=== PATIENT | male | born 1940 | race Caucasian/White ===

== ENCOUNTER 2023-06-04 19:51 | Emergency (ER) | payer MEDICARE, SELFPAY ==
[2023-06-04 20:03] VITALS: BP 161/91; PULSE 96; RESP 20; TEMP 37.2; O2SAT 94; BMI 30.1
--- NOTE | 2023-06-04 20:19 | US_ITS ---
Patient: LORI GRUBBS Facility:?[facility] Patient ID:?[id number] Site Patient ID:?[id number] Site :?[id number] Study:?US-Extremity Right LEV-06/04/2023 9:36:16 PM Ordering Physician:?Anitha Cohen MD Final Report: INDICATION: Leg pain and swelling. TECHNIQUE: Ultrasound venous duplex lower right extremity. Compression venous exam was performed using geiger-scale, color Doppler, and spectral Doppler analysis. COMPARISON: None. FINDINGS: Deep veins: Sonographic imaging demonstrates the right common femoral, deep femoral, superficial femoral, popliteal, posterior tibial and the contralateral right common femoral veins to be fully compressible with normal color Doppler blood flow. Superficial veins: Greater saphenous vein is fully compressible. No popliteal cyst. IMPRESSION: Normal right lower extremity venous ultrasound, no sign of deep venous thrombosis. Dictated by Angel Arroyo MD @ 06/04/2023 9:51:32 PM Signed by:?Angel Arroyo MD @06/04/2023 9:51:32 PM (Electronic Signature)
--- NOTE | 2023-06-04 21:15 | ED_ITS ---
HPI - General Adult General Chief complaint: Lower Extremity Swelling Stated complaint: L ankle and lower leg painful and swollen Time Seen by Provider: 06/04/23 20:05 Source: patient Mode of arrival: ambulatory Limitations: no limitations History of Present Illness HPI narrative: 82-year-old male coming in today complaining of right lower extremity swelling and discomfort. Patient states that his knees are bothering him for about 2 weeks and in the last couple days it has started to feel better. He denies any fevers or chills, no nausea or vomiting. He denies any cough or shortness of breath. He denies any chest pain. He states that in the last 24 hours he has noticed that the right lower extremity has gotten more swollen and he complains of tenderness at the calf and also at the ankle. Again no systemic symptoms. He denies any recent trauma to the extremity. Related Data Home Medications Medication Instructions Recorded Confirmed ibuprofen 200 mg tablet 200 mg PO Q4H PRN 08/06/22 08/06/22 Previous Rx's Medication Instructions Recorded albuterol sulfate 90 mcg/actuation 2 puff inhalation Q4-6H PRN 08/06/22 aerosol inhaler shortness of breath or wheezing #8.5 grams Allergies Allergy/AdvReac Type Severity Reaction Status Date / Time No Known Drug Allergies Allergy Verified 08/06/22 10:13 Review of Systems Status of ROS: Reports: 10 or more systems reviewed and unremarkable except as noted in History and below [facility] Medical History Bronchitis ?J40 - Bronchitis, not specified as acute or chronic (ICD-10) Sinusitis ?J32.9 - Chronic sinusitis, unspecified (ICD-10) Wheezing ?R06.2 - Wheezing (ICD-10) Cough ?R05.9 - Cough, unspecified (ICD-10) Social History Smoking Status: Former smoker Exam Narrative: Exam Narrative: Well-nourished well-developed patient in no acute distress. Alert and oriented. Answers questions appropriately. Mood and affect are appropriate. Thoughts are goal oriented and rational. No tangential or magical thinking noted. Patient speaks in full sentences without needing to catch his breath. HEENT: Normocephalic atraumatic. Pupils are equally round reactive to light. Extraocular muscles are intact. Conjunctivae are moist without any icterus noted. Moist mucous membranes. Cardiovascular: Heart is regular rate and rhythm S1 and S2 are present without any murmurs. Lungs: Clear to auscultation bilaterally no wheezes rhonchi or rales are apprec iated. Patient takes deep breaths without any discomfort. Abdomen: Protuberant and soft. Extremities: Bilateral lower extremities are without pitting edema. Normal DP and PT pulses. He does have some swelling of the right ankle. The medial right distal ankle and foot is erythematous, warm to touch with some skin induration consistent with cellulitis. He has mild nonspecific tenderness over the entire calf and ankle area. There is no redness, no pitting edema of the calf. He has good range of motion at the knee, there does appear to be a joint effusion. However, there is no erythema or warmth noted. Skin: Well perfused. Const: Vital Signs, click to edit/add: Vital Signs - 24 hr 06/04/23 20:03 Temperature 98.9 F Pulse Rate [Pulse Oximeter] 96 Respiratory Rate 20 Blood Pressure [Le ft Upper Arm] 161/91 H Pulse Oximetry 94 Oxygen Delivery Me thod Room Air Course Course ED Course: Lower extremity ultrasound was ordered: This did not show any evidence of DVT. Vital Signs Vital signs: Initial Vital Signs Temperature 98.9 F 06/04/23 20:03 Temperature Source Temporal Artery Scan 06/04/23 20:03 Pulse Rate 96 06/04/23 20:03 Respiratory Rate 20 06/04/23 20:03 Blood Pressure 161/91 H 06/04/23 20:03 Blood Pressure Mean 114 H 06/04/23 20:03 Blood Pressure Position Sitting 06/04/23 20:03 Pulse Oximetry 94 06/04/23 20:03 Oxygen Delivery Method Room Air 06/04/23 20:03 Vital Signs Temperature 98.9 F 06/04/23 20:03 Pulse Rate 96 06/04/23 20:03 Respiratory Rate 20 06/04/23 20:03 Blood Pressure 161/91 H 06/04/23 20:03 Pulse Oximetry 94 06/04/23 20:03 Oxygen Delivery Method Room Air 06/04/23 20:03 Temperature 98.9 F 06/04/23 20:03 Pulse Rate 96 06/04/23 20:03 Respiratory Rate 20 06/04/23 20:03 Blood Pressure 161/91 H 06/04/23 20:03 Pulse Oximetry 94 06/04/23 20:03 Oxygen Delivery Method Room Air 06/04/23 20:03 Medical Decision Making MDM Narrative Medical decision making narrative: 82-year-old male with lower extremity swelling, evidence of cellulitis present. Will treat the patient with Keflex p.o. t.i.d.. I do want him to follow up in the clinic 1st thing Wednesday. Return to the ED for any systemic symptoms. Imaging Data Venous US: Attestation: I have reviewed the pertinent imaging results. Radiologist's impression: INDICATION: Leg pain and swelling. TECHNIQUE: Ultrasound venous duplex lower right extremity. Compression venous exam was performed using geiger-scale, color Doppler, and spectral Doppler analysis. COMPARISON: None. FINDINGS: Deep veins: Sonographic imaging demonstrates the right common femoral, deep femoral, superficial femoral, popliteal, posterior tibial and the contralateral right common femoral veins to be fully compressible with normal color Doppler blood flow. Superficial veins: Greater saphenous vein is fully compressible. No popliteal cyst. IMPRESSION: Normal right lower extremity venous ultrasound, no sign of deep venous thrombosis. Discharge Plan Discharge Clinical Impression: Cellulitis Patient Disposition: Home, Self-Care Condition: Stable Additional Instructions: You appear to have an infection of your ankle/foot area. I do want you to take all the antibiotics as prescribed, take your 1st dose tonight. I also recommend that you follow-up with a primary care provider on Wednesday. When you call to make the appointment, state that you need an ER follow-up visit for cellulitis. I want you to return to the emergency room if you develop fatigue, weakness, fevers, vomiting or loss of appetite. Antibiotics sent to [facility]. Prescriptions: No Action ibuprofen 200 mg tablet 200 mg PO Q4H PRN albuterol sulfate 90 mcg/actuation HFA aerosol inhaler 2 puff inhalation Q4-6H PRN (Reason: shortness of breath or wheezing) Qty: 8.5 1RF Follow Up/Referrals: Provider,Not a Local [Primary Care Provider] - [facility]
--- OUTSIDE RECORDS SUMMARY | 2023-06-04 21:50 | XMS_ITS | Clinical Summary ---
Author Name Unknown Organization [facility] Address [place], [place] [address] Care Team Providers Care Visual Merchandising Specialist Name Role Phone JillYamile majano MD Unavailable [phone] Mauricio Smith MD Unavailable [phone] Melvin Hurt MD Primary Care Provider Allergies Active Allergy Reactions Criticality Noted Date Comments Flavoring Agent Other - Describe In Comment Field 07/19/2009 Chocolate - causes sneezing Unlisted Allergen (Include Detail In Comments) Other - Describe In Comment Field 02/16/2017 Road salt dust - causes watery eyes, congestion, and sneezing Pollen Extracts Other - Describe In Comment Field 07/19/2009 Ragweed also. Patient states the reaction felt like a head cold Soybean Other - Describe In Comment Field 07/08/2010 Pneumonia from soybean dust in 1984. Only allergy is soy florentino dust, able to take soy products if not josé antonio. Medications Medication Sig Dispensed Refills Start Date End Date Status multivitamin (MVI) tablet Take 1 tablet by mouth once daily. 0 11/28/2009 Active calcium carbonate-vitamin D3, 600 mg-400 unit, (CALCIUM 600 + D) tablet Take 1 tablet by mouth once daily. 0 04/30/2011 Active Cholecalciferol, Vitamin D3, (VITAMIN D-3) 5,000 unit TabIndications:Lily min D deficiency Take 1 tablet by mouth once daily. 90 tablet 1 09/15/2012 Active medication order composerIndications :Obstructive sleep apnea 09/07/2012 AHI-15, Diagnosis- obstructive sleep apnea; MRD #1-- Needs time chip for DOT compliance 1 unit. 10/14/2020 Active Active Problems Problem Noted Date Diagnosed Date Cortical senile cataract, bilateral 02/14/2020 Nuclear sclerotic cataract, bilateral 02/14/2020 Presbyopia 02/14/2020 Anisometropia 02/14/2020 Fracture of greater trochanter 03/02/2013 Overview: Avulsion fx, L AMINA 09/07/2012 AHI-15 09/15/2012 ACP (advance care planning) 04/06/2011 Overview: Document on File 04/06/2011 Dermatochalasis 06/10/2010 Biceps tendon rupture 09/30/2009 Spinal stenosis, lumbar ryland on, without neurogenic claudication 06/26/2009 Onychomycosis 12/11/2008 Overview: right great toe - treated by Dr Pruitt Resolved Problems Problem Noted Date Diagnosed Date Resolved Date Vitamin D deficiency 09/15/2012 021 Personal history of colonic polyps 02/04/2011 03/25/2020 Overview: Colonoscopy 01/2011 normal repeat in 5 years Colonoscopy 07/2016 polyp repeat in 5 years Gallstone pancreatitis 07/09/201004/08 Abdominal pain, generalized 07/05/2010 04/08/2011 Hyperbilirubinemia 07/05/2010 2 Biliary obstruction 07/05/2010 04/08/19 12 Fever 07/05/2010 04/08/2011 Hypokalemia 07/05/2010 04/08/2011 Jaundice, unspecified, not of 07/05/2010 04/08/2011 Elevated LFT's 07/05/2010 04/08/2011 Osteoarthritis of hip 09/11/20092009 Lt knee pain 07/24/2009 01/09/2010 Hip pain 12/11/2008 11/28/2009 Overview: Right - thought due to Osteoarthritis Immunizations Name Administration Dates Next Due Influenza, IIV3 (Age >=3 years) 11/28/2009 Pneumococcal Poly,23-Valent (Pneumovax) 07/17/19 10 Pneumococcal conj 13-Valent (Prevnar 13) 015 Td (Age >=7 Years) 03/13/2005,04/06/2003 Tdap 04/06/2011 Zoster (Zostavax-ZVL, live) 12/11/2008 Family History Medical History Relation Name Comments Other Brother Marcell Divertulitis w Bleeding Complication Arthritis Father Paul Glaucoma Other Father Paul Dementia and [place] PD/glaucoma ? Cancer Mother Sanjuana Kidney and Bone Anesthesia Problem No Family History Blood Disease No Family History Relation Name Status Comments Brother Marcell Alive Father Paul (Age 74) Mother Sanjuana (Age 84) Social History Tobacco Use Types Packs/Day Years Used Date Smoking Tobacco: Never Smokeless Tobacco: Never Tobacco Cessation:Counseling Given: Yes Alcohol Use Standard Drinks/Week Comments Yes 2.5 (1 standard drink = 0.6 oz p ure alcohol) PHQ-2 Answer Date Recorded PHQ-2 TOTAL SCORE 0 08/20/2020 Social Connections Answer Date Recorded Frequency of Communication with Friends and Fami ly Not on file 08/29/2022 Financial Resource Strain Answer Date R ecorded Difficulty of Paying Living Expenses 3 08/21/2021 Difficulty of Paying Living Expenses Not on file 08/21/2021 Food Insecurity Answer Date Recorded Worried About Running Out of Food in the Last Ye ar 1 08/21/2021 Transportation Needs Answer Date Record ed Lack of Transportation (Medical) 1 08/21/2021 Housing Stability Answer Date Recorded Unable to Pay for Housing in the Last Year 1 08/21/2021 Sex and Gender Information Value Date Recorded Sex Assigned at Not on file Gender Identity Not on file Sexual Orientation Not on file Obstetrics History Last Filed Vital Signs Vital Sign Reading Time Taken Comments Blood Pressure 143/83 08/21/2021 9:47 AM CDT Pulse 73 08/21/2021 9:47 AM CDT Temperature 36.5 ??C (97.7 ??F) 01/19/2019 8:10 AM CS T Respiratory Rate 18 10/29/2014 2:34 PM CDT Oxygen Saturation 95% 08/21/2021 9:47 AM CDT Inhaled Oxygen Concentration - - Weight 97.7 kg (215 lb 6.4 oz) 08/21/2021 9:47 A M CDT Height 174 cm (5' 8.5) 10/14/2020 10:20 AM CDT Body Mass Index 32.28 10/14/2020 10:20 AM CDT Plan of Treatment Health Maintenance Due Date Last Done Comments Zoster (shingles) series for age 50+ (2 of 3) 02/05/2009 12/11/2008 Medicare Wellness for age 65+ 04/06/2012 04/06/2011 Tetanus booster 04/06/2021 04/06/2011, 03/01, 04/06/2003 Depression screening for age 12+ 08/20/2021 08/21/19 21, 02/16/2017 BMI (ht and wt on same day) for age 18+ 10/14/2021 10/14/2020, 03/25/2020, 07/20/2018, Additional history exists COVID-19 vaccine series ( season) 2022 Influenza for age 65+ 10/31/2023 11/28/2009 Tdap Completed 04/06/2011 Pneumococcal series for age 65+ Completed 5, 07/16/2009 Advance Directives Documents on File Type Date Recorded Patient Press Setter Expl anation Healthcare Directive 07/24/2009 * Full Code (Latest Code Status on File) Date Activated Date Inactivated Comments 09/29/2010 9:22 AM 09/29/2010 2:21 PM * Full Code Date Activated Date Inactivated Comments 07/05/2010 11:44 PM 07/09/2010 5:45 PM * Full Code Date Activated Date Inactivated Comments 07/21/2009 9:20 AM 07/26/2009 12:14 PM Care Teams Visual Merchandising Specialist Relationship Specialty Start Date End Date Melvin Hurt MD [address] [place] [address] PCP - General Family Practice 03/25/20 Yamile Jenkins MD Surgery - Orthopedics 04/06/11 Mauricio Smith MD [address] [address] Ophthalmology Surgery 04/06/11
--- OUTSIDE RECORDS SUMMARY | 2023-06-04 21:50 | XMS_ITS | Data Portability ---
Author Name Unknown Address [address] [place] [address] Phone [phone] Organization [place] [facility] Address [address] [facility] [place] [address] [place] [address] Care Team Providers Care Victim Witness Administrator Name Role Phone [facility] Referring Provid er Assessment Encounter Date Assessment Date Assessment LastModified by Organization Details LastModified Time 09/26/2018 09/26/2018 Today I spent a considerable amount of time discussing that patients past medical and personal history, as well as performing a physical examination all of which is documented in it's entirety in the electronic health record. I reviewed the pathophysiology of the disorder, potential contributing and risk factors as well as treatment options to address their complaints. I reviewed their most current sleep study documentation. Today I reviewed treatment options to address obstructive sleep apnea. We touched on CPAP use and focused on the option of an oral appliance, which was the reason for today's visit. I do believe that a mandibular advancement oral appliance is a reasonable treatment option. Today we discussed risks and benefits of oral appliance therapy. Informed consent and cost of care was reviewed both verbally and in written form. We did begin the fabrication process today for a custom fit ADRIAN mandibular advancement oral appliance. Today greater than 50% of the 60 minute visit was spent counseling and coordinating care. This may have included a review of the diagnosis, contributing factors, risks including lack of treatment efficacy, jaw symptoms and potential changed in their dental occlusion limitations and expectations. Cost of care and insurance coverage was reviewed and discussed with the patient. Not available 09/26/2018 19:12:59 11/22/2018 11/22/2018 Patient was seen today for follow-up and insertion of a mandibular advancement (ADRIAN) intraoral appliance. Diagnosis and contributing factors were reviewed. Questions were answered. Self-management and home exercise techniques were reviewed. Berto was under the assumption that the appliance had a chip which could report his compliance. I explained that this appliance did not have a chip and that he should confirm with his physician that he could take a home sleep study with the appliance to evaluate its effectiveness. Berto needs to be compliant with the Department of Transportation. He ultimately decided to move forward with the ADRIAN device. Today the intraoral appliance was fit to patient comfort. I started Berto in #19 yellow bands. A morning water resource manager was fabricated. Instructions on proper use and care were discussed/reviewed both written and verbally. . Potential side effects were reviewed. The patient was advised to discontinue oral appliance use should they experience untoward side effects or be unable to return for follow-up care. The patient was advised to return in 3-4 weeks to reassess their progress and continue their treatment plan as previously outlined. Today greater than 50% of the 25 minute visit was spent counseling and coordinating care. This may have included a review of the diagnosis, contributing factors, home self-management strategies and the limitations and expectations. Not available 11/23/2018 09:56:08 01/02/2019 01/02/2019 Today I reviewed the diagnosis, contributing factors and treatment options. I reviewed and reinforced continued use of self care and home exercises. I've encouraged daily home care use which may consist of heat and ice compresses, oral habit reduction and relaxation techniques. The intraoral appliance did not require additional adjustment. I urged Berto to use his morning water resource manager to help prevent bite changes. At this time I've asked Berto to contact their sleep physician to consider updating a PSG/HST to objectively verify the effectiveness of the appliance. I've suggested that he follow-up with me to review the results of the study and determine the need for additional appliance adjustment at that time. Should apnea be sufficiently resolved we will at that time begin a long--term follow-up schedule while we monitor for jaw symptoms and/or changes in occlusion. I provided Berto with #18 and #17 yellow bands and showed him how to change the bands in case he needs to advance his mandible forward during the home sleep study. I've suggested that he return for follow-up care in after his sleep study. Today greater than 50% of the 25 minute visit was spent counseling and coordinating care. This may have included a review of the diagnosis, contributing factors, home self-management strategies and the limitations and expectations. [email or web address] Not available 01/02/2019 11:33:24 Plan of Treatment Reminders Order Date Submit Date Provider Last Modified By Organization Details Last Modified Time Details Appointments None record ed. Lab None record ed. Referral None record ed. Procedures None record ed. Surgeries None record ed. Imaging None record ed. Medication Orders None record ed. Patient TargetsNo targets recorded. Patient InstructionsNo instructions recorded. Reason for Referral None Reported. Problems Name Status Onset Date Resolution Date Notes Provider Name and Address Organization Details Recorded Time Obstructive sleep apnea of adult Active AHI=15 Susan castillo [facility] 9 19:11:05 Myofascial pain Completed 09/26/2018 mild right masseter Susan castillo [facility] 9 19:11:37 Problem Notes None recorded. Procedures Surgical History Date Name Laterality Status Provider Name and Address Organization Details Recorded Time Oral appliance therapy for sleep apnea completed Susan castillo [facility] 11/23/2018 09:49:23 incision and drainage of gallbladder completed Jairon castillo [facility] 09/26/2018 14:17:19 Shoulder joint surgery completed Jairon castillo [facility] 09/26/2018 14:17:26 total replacement of hip completed Jairon castillo [facility] 09/26/2018 14:17:46 procedure on back completed Jairon castillo [facility] 09/26/2018 14:17:57 Imaging Results None recorded. Procedure Notes None recorded. Medical Equipment None Reported. Allergies Allergen ID Allergen Name Allergen Category Reaction Reaction Severity Criticality Documentation Date Start Date Code Code System Note Provider Name and Address Organization Details Recorded Time 97585 house dust allergeni c extract environme nt,medica tion Not available Not available Not available 09/26/2018 56358 9 RxNorm EBONIE Avilez [facility] 9 14:11:25 Medications Name Sig Start Date Stop Date Status Note LastModified by Organization Details LastModified Time hydrocodone 5 mg-acetaminophen 325 mg tablet 09/26 completed Not Available Not Available Not Available tamsulosin 0.4 mg capsule active Not Available Not Available N ot Available hydrocortisone 2.5 % topical ointment active Not Available Not Available Not Available fluticasone propionate 50 mcg/actuation nasal spray,suspension 09/26 completed Not Available Not Available Not Available calcium active Not Available Not Avail able Not Available Vitals Date Recorded Body height Body mass index (BMI) Body weight Heart rate Systolic blood pressure Diastolic blood pressure Provider Name and Address Organization Details Last Updated DateTime 9 177.8 cm 29.1 kg/m2 35673.2 5 g 78 /min 132 mm[Hg] 80 mm[Hg] Jairon castillo [facility] 9 14:12:03 Date Recorded Body height Body mass index (BMI) Body weight Heart rate Systolic blood pressure Diastolic blood pressure Provider Name and Address Organization Details Last Updated DateTime 9 177.8 cm 29.1 kg/m2 17759.2 5 g 80 /min 144 mm[Hg] 64 mm[Hg] Dc castillo [facility] 9 12:53:33 Date Recorded Body height Provider Name an d Address Organization Details Last Updated DateTime 01/02/2019 177.8 cm Jairon castillo [facility] 01/02/2019 11:00:58 Social History Question Answer Notes LastModified by Organizat ion Details LastModified Time Tobacco Smoking Status Never Smoker Jairon castillo [facility] 09/26/2018 14:15:38 What Is Your Level Of Alcohol Consumption? Moderate Information not available 09/26/2018 Auto Related Injury? No Information not available 09/26/2018 What Is Your Level Of Caffeine Consumption? Moderate Information not available 09/26/2018 Are You Currently Employed? Yes Information not available 09/26/2018 Currently No Information not available 09/26/2018 What Type Of Diet Are You Following? 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 No Information not available 09/26/2018 General Stress Level Low [email or web address] Information not available 11/22/2018 Do You Use Any Illicit Or Recreational Drugs? No Information not available 09/26/2018 Work Related Injury? No Information not available 09/26/2018 Sex: Male Functional Status Question Answer Note LastModified by Organization D etails LastModified Time What is your exercise level? None Information not available 09/26/2018 Mental Status None recorded. Family History Relationship Description Onset Age of this Age Resolved Age Notes Father Arthritis Father Migraine Medical History Condition Response Coronary Artery Disease N Other N Gout N Chronic fatigue syndrome N Hyperthyroidism N Premenstrual syndrome (PMS) N MRSA N Emphysema N Head Trauma/Injury N Irritable bowel syndrome N Depression N COPD N Glaucoma N Lung Disease N Hypothyroidism N Pneumonia Y Pacemaker N Obstructive Sleep Apnea N Anxiety Disorder N Muscle, Joint, or Bone Problems N Autoimmune disease N Vision or Eye Problems N Arthritis N Serious Illness or Injuries N Acid Reflux (GERD) N Cancer N Stroke N Neck Injury N Eating disorder N Back Injury Y High Cholesterol N Neurologic Disorder N History of chemotherapy N Liver Disease N Organ Transplant N Rheumatoid Arthritis N Fibromyalgia N Headaches N Kidney Disease N Allergies/Hayfever N Post traumatic stress disorder (PTSD) N Parkinson's Disease N Migraines N Brain Tumors N Anemia N Multiple Sclerosis N Immune System Disorder N Meningitis N Pancreatic disease N Heart Attack ([place]) N Stomach Ulcers N Diabetes N Back pain Y Bleeding Disorder N Seizures/Epilepsy N Sjogren's syndrome N Tuberculosis N AIDS/HIV N Hyperlipidemia N History of radiation therapy N Dementia N Asthma N Physical or sexual abuse N Substance Abuse N Psoriasis N Peripheral Vascular Disease N Reflux/GERD N Mental Problems N Vertigo N Sleep Disorder Y Hepatitis N Aneurysm N Neuropathy N Heart Disease N Pulmonary Embolism N Hypertension N Osteoporosis N Past Encounters Encounter ID Performer Location Encounter Start Date Encounter Closed Date Diagnosis/Indication Diagnosis SNOMED-CT Code [id number] Susan Wray [address] [place] [id number] 09/26/2018 13:49:11 09/26/2018 15:52:19 Obstructive sleep apnea of adult [id number] Susan Wray [address] [place] [id number] 11/22/2018 12:19:18 11/22/2018 14:11:36 Obstructive sleep apnea of adult 1391201629462 [id number] Susan Fried e [address] [place], [place] [id number] 01/02/2019 10:52:21 01/02/2019 11:29:02 Obstructive sleep apnea of adult [id number] Health Concerns Section Related Observation LastModified by Organization Detai ls LastModified Time None Recorded Concern Status LastModified by Organization Details LastModified Time None Recorded Advance Directives Directive None Recorded Payers Encounter Date Sequence Insurance Name Policy Number Policy Burris Covered Member ID Burris Member ID Guarantor Name 01/02/2019 1 [employer] - DOS PRIOR TO 2021 BERTHA Radford [id number] Berto Prabhakar 11/22/2018 1 [employer] - DOS PRIOR TO 2021 BERTHA Bentleya [id number] Berto Prabhakar 09/26/2018 1 [employer] - DOS PRIOR TO 2021 BERTHA Bentleya [id number] Berto Prabhakar Notes Date Note Type Note Provider Name and Address Organization Details Recorded Time 09/26/2018 text/html HPI Notes: Sleep Apnea Reported by patient. Severity/status: moderate Onset/Timing: long standing Prior History no hypertension; no history of stroke; no atrial fibrillation temporomandibular joint symptoms no temporomandibular joint symptoms Context: no lack of adequate sleep Alleviating factors: relief with CPAP; relief with using pillows to prop up at night (He uses My Pillow) Associated Symptoms: no morning headache; no excessive sleepiness during the day; no suddenly falling asleep during the day; no napping Prior opinion pulmonology Prior Tests: polysomnography Prior Treatment CPAP Patient presents today for evaluation of the possible use of a mandibular advancement oral appliance to address their moderate obstructive sleep apnea and snoring. Patient has trialed CPAP. Today their [place] Sleepiness Scale score was a 6. The patient is predominantly a side sleeper. There is no history of TMD related symptoms including jaw pain, jaw joint noises or difficulty with mouth opening. There is no awareness of clenching and/or grinding of their teeth. Berto reports that four years ago had a sleep study because his thought he appeared unusually tired throughout the day. He was diagnosed with moderate sleep apnea (AHI=15). He has been using a CPAP ever since, but he is interested in a mandibular advancement device instead. He used to snore but doesn't believe he is still snoring. His sleep physician (Dr. Graves) referred him for an evaluation for an AMINA device. EBONIE Daniel [facility] 09/26/2018 19:14:14 11/22/2018 text/html HPI Notes: Sleep Apnea Reported by patient. Severity/status: moderate Onset/Timing: long standing Prior History no hypertension; no history of stroke; no atrial fibrillation temporomandibular joint symptoms no temporomandibular joint symptoms Context: no lack of adequate sleep Alleviating factors: relief with CPAP; relief with using pillows to prop up at night (He uses My Pillow) Associated Symptoms: no morning headache; no excessive sleepiness during the day; no suddenly falling asleep during the day; no napping Prior opinion pulmonology Prior Tests: polysomnography Prior Treatment CPAP Patient presents today for insertion of a mandibular advancement oral appliance. They note no changes in symptoms which along with prior data was reviewed, updated and documented in the patient history of present illness. EBONIE Daniel [facility] 11/23/2018 09:56:57 01/02/2019 text/html HPI Notes: Sleep Apnea Reported by patient. Severity/status: moderate Onset/Timing: long standing Prior History no hypertension; no history of stroke; no atrial fibrillation temporomandibular joint symptoms no temporomandibular joint symptoms Context: no lack of adequate sleep Alleviating factors: relief with CPAP; relief with using pillows to prop up at night (He uses My Pillow) Associated Symptoms: no morning headache; no excessive sleepiness during the day; no suddenly falling asleep during the day; no napping Prior opinion pulmonology Prior Tests: polysomnography Prior Treatment CPAP Patient presents today for follow-up. He is effectively using the mandibular advancement oral appliance. They note no changes in symptoms which along with prior data was reviewed, updated and documented in the patient history of present illness. Subjectively he does not know if the appliance is doing anything. He recognizes unchanged daytime tiredness and no improvement in restorative sleep. He denies side effects including bite changes. He had clicking in his tmj's for a couple of days, but it subsided.He is not using the morning bite water resource manager as recommended. Adjustments to the oral appliance are not felt necessary [place] score 3 Berto reports that he has been wearing the appliance with no issues, but he is not sure how well it is working. He is not tired during the day, but he was not tired during the day prior to wearing the device. He would like a report stating that the appliance is effective. EBONIE Daniel - [facility] 01/02/2019 11:33:52
--- OUTSIDE RECORDS SUMMARY | 2023-06-04 21:50 | XMS_ITS | Continuity of Care Document ---
Author Name Unknown Organization [facility] Address [address] [address] [place] [address] Phone Care Team Providers Care Paint Roller Cover Machine Setter Name Role Phone Abad Segovia DO Unavailable Unavailable Procedures Procedure Date Init Hosp-da E&m Mod Severity 1 Advance Directives Directive Yes / No Effective Date File Name No Information Encounters Encounter Description Practice Location Reason(s) For Visit Diagnoses Date Provider Providers Copied on Encounter Init Hosp-da E&m Mod Severity [facility] [place], [address] [address], [place], [place], [id number], [place] tel:[phone] [facility] No Information Luca Julien. [address] [facility] [facility] [address], [place], [place], [id number] , [place]. tel:[phone] Referring Provider: Korin Edwards MD, [address], [address]. tel:[phone] Family History Family Member Type Diagnosis Age At Onset No Information Payers Payer name Insurance type Covered republican ID Authoriza tion(s) No Information Social History Type Description Quantity Date Captured Comments Sex Male Smoking Status No Information Chief Complaint And Reason For Visit No Information Reason For Referral Reason For Referral No Information History Of Present Illness Encounter Date Complaint History Of Prese nt Illness No Information Functional Status Date Functional Assessmen t No Information Instructions Date Instruction Additional Infor mation No Information Assessments Type Assessment Date No Information Patient Care Teams Name Effective Dates (start - stop) Status Members No Information
--- OUTSIDE RECORDS SUMMARY | 2023-06-04 21:50 | XMS_ITS | Continuity of Care Document ---
Author Name Unknown Organization [facility] Address [address] [place] [address] Phone Care Team Providers Care Tenant Relations Coordinator Name Role Phone Kali PAC, Yoanna Unavailable Unavailable Allergies, Adverse Reactions, Alerts Substance Reaction Status Criticality chocolate flavor Sneezing Active No Informat ion Medications Medication Instructions Dosage Effective Dates (start - stop) Status Comments VITAMIN D3 (unknown strength) Not Available - Active CALCIUM (unknown strength) Not Available - Active MULTIVITAMINS (unknown strength) Not Available - Active Procedures Procedure Date Office/Outpatient Visit,Est, Mod 2020 X-Ray Exam Of Neck Spine, 4+ Views Office/Outpatient Visit,Est, Mod 2019 X-Ray Exam Of Neck Spine2-3 Views Office/Outpatient Visit,Est, Mod 2019 Office/Outpatient Visit,Est, Mod 2019 X-Ray Exam Of Neck Spine2-3 Views Office/Outpatient Visit,Est, Mod 2019 X-Ray Exam Of Neck Spine2-3 Views Office/Outpatient Visit,New, Mod 2019 X-Ray Exam Of Neck Spine2-3 Views Postop followup visit Postop followup visit Bilateral Low back disk surgery/decompre ss Added spine disk surgery/decompress Office/outpatient visit,new, mod 2009 X-ray exam of total spine Advance Directives Directive Yes / No Effective Date File Name No Information Encounters Encounter Description Practice Location Reason(s) For Visit Diagnoses Date Provider Providers Copied on Encounter Office/Outpat ient Visit,Est, Mod [facility], [address], [place], [place], [id number], [place] tel:[phone] [facility] Other spondylosis, cervical region Apr-3 0- 1 Kali Lenz. [facility], [address], [place], [address], [place]. tel: [phone] Referring Provider: Yoanna Watts, [facility] [address], [place], [address]. tel:[phone] Office/Outpat ient Visit,Est, Mod [facility], [address], [place], [place], [id number], [place] tel:[phone] [facility] Other displaced dens fracture, sequela 0 Kali Yoanna. [facility], [address], [place], [address], [place]. tel: [phone] Referring Provider: Yoanna Watts, [facility] [address], [place], [address]. tel:[phone] Office/Outpat ient Visit,Est, Mod [facility], [address], [place], [place], [address], [place] tel:[phone] [facility] Other displaced dens fracture, sequela 0 Kali Yoanna. [facility], [address], [place], [address], [place]. tel: [phone] Referring Provider: Yoanna Watts, [facility] [address], [place], [address]. tel:[phone] Office/Outpat ient Visit,Est, Mod [facility], [address], [place], [place], [address], [place] tel:[phone] [facility] Other displaced dens fracture, sequela 0 Kali Lenz. [facility], [address], [place], [address], [place]. tel:[phone] Referring Provider: Yoanna Watts, [facility] [address], [place], [address]. tel:[phone] Office/Outpat ient Visit,Est, Mod [facility], [address], [place], [place], [address], [place] tel:[phone] [facility] Other displaced dens fracture, sequela 0 0 Lauren Kevin. [facility], [address], [place], [place], [address] , [place]. tel:[phone] Referring Provider: Yoanna Watts, [facility] [address], [place], [address]. tel:[phone] Office/Outpat ient Visit,New, Mod [facility], [address], [place], [place], [address], [place] tel:[phone] [facility] Oth displaced dens fracture, init encntr for closed fracture 0 Kali Lenz. [facility], [address], [place], [address], [place]. [phone] Referring Provider: Yoanna Watts, [facility] [address], [place], [address]. tel:[phone] Z [facility], [address], [place], [address], [place] tel:[phone] [facility] [place] No Information 3201 0 Mehbod Amir. [facility], [address], [place], [place], [id number] , [place]. tel:[phone] Referring Provider: Shahzad Watts, [address], [place], [address]. tel:[phone] Z [facility], [address] [place], [place] [address] [address], [place], [address], [place] tel:[phone] [employer] No Information Aug-0 8-201 0 Mehbod Amir. [facility], [address], [place], [place], [address] , [place]. tel:[phone] Referring Provider: Shahzad Watts, [address], [place], [address]. tel:[phone] Z [facility], [address] [address], [place], [address], [place] tel:[phone] [phone] [place] [address] No Information 2 5-201 0 Mehbod Amir. [facility], [address], [place], [place], [address] , [place]. tel:[phone] Referring Provider: Shahzad Watts, [facility] [address], [place], [address]. tel:[phone] Office/outpat ient visit,new, mod Z [facility], [address] [place], [place] [address] [address], [place], [address], [place] tel:[phone] [employer] No Information June-0 3-201 0 Mehbod Amir. [facility], [address], [place], [place], [address] , [place]. tel:[phone] Referring Provider: Shahzad Watts, [address], [place], [address]. tel:[phone] Family History Family Member Type Diagnosis Age At Onset No Information Payers Payer name Insurance type Covered alliance party ID Roxanaa marcus(s) [employer] Medicare 2021 CI [id number] Social History Type Description Quantity Date Captured Comments Alcohol Use Details Unknown Caffeine Use Details Unknown Tobacco Use Status No Information Smoking Status No Information Sex Male Vital Signs Date / Time: Height Weight BMI Pulse Rate Blood Pressure Temperature Respiratory Rate Body Surface Area Head Circumference Head Circ. Percentile Wt./Harsha. Percentile BMI percentile Pulse Ox Inhaled Ox 2:32 PM 69.00 in Chief Complaint And Reason For Visit No Information Reason For Referral Reason For Referral No Information Plan Of Treatment Date Type Action Status Future Order: Radiology Order Ce rvl 4-5 Views ([id number]), Ordered on: Ordered Future Order: Radiology Order Ce rvical 3 Views Or Less ([id number]), Ordered on: Ordered Future Order: Radiology Order Ce rvical 3 Views Or Less ([id number]), Ordered on: Ordered Future Order: Radiology Order Ce rvical 3 Views Or Less ([id number]), Ordered on: Ordered History Of Present Illness Encounter Date Complaint History Of Prese nt Illness No Information Functional Status Date Functional Assessmen t No Information Instructions Date Instruction Additional Infor mation No Information Assessments Type Assessment Date assessment Other spondylosis, cervical ryland on Patient Care Teams Name Effective Dates (start - stop) Status Members No Information
[2023-06-04 22:16] VITALS: BP 154/78; PULSE 96; RESP 20; TEMP 36.9; O2SAT 94
[2023-06-04 22:28] VITALS: BP 154/78; PULSE 96; RESP 20; TEMP 36.9
== END 2023-06-04 22:28 | disposition home or self-care (01) ==
PROVIDERS: Emergency Provider Family Medicine
DX: L03.115 Cellulitis of right lower limb (principal)
CPT/HCPCS: 93971; 99283; 99284

== ENCOUNTER 2023-07-18 09:17 | Outpatient (CLI) | payer MEDICARE, SELFPAY ==
--- OUTSIDE RECORDS SUMMARY | 2023-07-18 09:18 | XMS_ITS | Continuity of Care Document ---
Author Name Unknown Organization [facility] Address [address] [address] [place] [address] Phone Care Team Providers Care [facility] Attendant Name Role Phone Abad Segovia DO Unavailable Unavailable Procedures Procedure Date Init Hosp-da E&m Mod Severity 1 Advance Directives Directive Yes / No Effective Date File Name No Information Encounters Encounter Description Practice Location Reason(s) For Visit Diagnoses Date Provider Providers Copied on Encounter Init Hosp-da E&m Mod Severity [facility], [address] [address], [place], [place], [id number], [place] tel:[phone] [facility] No Information Luca Julien. [address] [facility], [facility] [address], [place], [place], [address] , [place]. tel:[phone] Referring Provider: Korin Edwards MD, [address], [address]. tel:[phone] Family History Family Member Type Diagnosis Age At Onset No Information Payers Payer name Insurance type Covered constitution party ID Authoriza tion(s) No Information Social History [...]
--- OUTSIDE RECORDS SUMMARY | 2023-07-18 09:18 | XMS_ITS | Continuity of Care Document ---
Author Name Unknown Organization [facility] Address [address] [place] [address] Phone Care Team Providers Care Laboratory Clerk Name Role Phone Kali PAC, Yoanna Unavailable Unavailable Allergies, Adverse Reactions, Alerts Substance Reaction Status Criticality chocolate flavor Sneezing Active No Informat ion Medications Medication Instructions Dosage Effective Dates (start - stop) Status Comments MULTIVITAMINS (unknown strength) Not Available - Active CALCIUM (unknown strength) Not Available - Active VITAMIN D3 (unknown strength) Not Available - Active Procedures [...] ient Visit,Est, Mod [facility], [address], [place], [place], [id number], [place] tel:[phone] [facility] Other spondylosis, cervical region Apr-3 0- 1 Kali Lenz. [facility], [address], [place], [address], [place]. tel: [phone] Referring Provider: Yoanna Watts, [facility] [address], [place], [address]. tel:[phone] Office/Outpat ient Visit,Est, Mod [facility], [address], [place], [place], [address], [place] tel:[phone] [facility] Other displaced dens fracture, sequela 0 Kali Yoanna. [facility], [address], [place], [address], [place]. tel: [phone] Referring Provider: Yoanna Watts, [facility] [address], [place], [address]. tel:[phone] Office/Outpat ient Visit,Est, Mod [facility], [address], [place], [place], [address], [place] tel:[phone] [facility] Other displaced dens fracture, sequela 0 Kali Yoanna. [facility], [address], [place], [address], [place]. tel: [phone] Referring Provider: Yoanna Watts, [facility] [address], [place], [address]. tel:[phone] Office/Outpat ient Visit,Est, Mod [facility], [address], [place], [place], [address], [place] tel:[phone] [facility] Other displaced dens fracture, sequela 0 Kali Lenz. [facility], [address], [place], [address], [place]. tel:[phone] Referring Provider: Yoanna Watts, [facility] [address], [place], [address]. tel:[phone] Office/Outpat ient Visit,Est, Mod [facility], [address], [place], [place], [address], [place] tel:[phone] [facility] Other displaced dens fracture, sequela 0 0 Lauren Kevin. [facility], [address], [place], [place], [address] , [place]. tel:[phone] Referring Provider: Yoanna Watts, [facility] [address], [place], [address]. tel:[phone] Office/Outpat ient Visit,New, Mod [facility], [address], [place], [place], [id number], [place] tel:[phone] [facility] Oth displaced dens fracture, init encntr for closed fracture 0 Kali Lenz. [facility], [address], [place], [address], [place]. [phone] Referring Provider: Yoanna Watts, [facility] [address], [place], [address]. tel:[phone] Z [facility], [address], [place], [address], [place] tel:[phone] [facility] [place] No Information 3201 0 Mehbod Amir. [facility], [address], [place], [place], [address] , [place]. tel:[phone] Referring Provider: Shahzad Watts, [address], [place], [address]. tel:[phone] Z [facility], [address] [place], [place] [address] [address], [place], [address], [place] tel:[phone] [employer] No Information Aug-0 8-201 0 Mehbod Amir. [facility], [address], [place], [place], [address] , [place]. tel:[phone] Referring Provider: Shahzad Watts, [address], [place], [address]. tel:[phone] Z [facility], [address] [address], [place], [address], [place] tel:[phone] [place] [address] No Information 2 5-201 0 Mehbod Amir. [facility], [address], [place], [place], [address] , [place]. tel:[phone] Referring Provider: Shahzad Watts, [facility] [employer] [address], [place], [address]. tel:[phone] Office/outpat ient visit,new, mod Z [facility], [address] [place], [place] [address] [address], [place], [address], [place] tel:[phone] [employer] No Information June-0 3-201 0 Mehbod Amir. [facility], [address], [place], [place], [address] , [place]. tel:[phone] Referring Provider: Shahzad Watts, [address], [place], [address]. tel:[phone] Family History Family Member Type Diagnosis Age At Onset No Information Payers Payer name Insurance type Covered constitution party ID Roxanaa marcus(s) [employer] Medicare 2021 CI [id number] Social History Type Description Quantity Date Captured [...] Order Ce rvical 3 Views Or Less ([id number]), Ordered on: Ordered Future Order: Radiology Order Ce rvical 3 Views Or Less ([id number]), Ordered on: Ordered Future Order: Radiology Order Ce rvical 3 Views Or Less ([id number]), Ordered on: Ordered History Of Present Illness Encounter Date Complaint History Of Prese nt Illness No Information Functional Status Date Functional Assessmen t No Information Instructions Date Instruction Additional Infor mation No Information Assessments Type Assessment Date assessment Other spondylosis, cervical ryland on Patient Care Teams Name Effective Dates (start - stop) Status Members No Information
== END 2023-07-18 09:18 | disposition home or self-care (01) ==
LOC: LKVREF 09:17
PROVIDERS: Visit Provider Physician Assistant
DX: S20.461A Insect bite (nonvenomous) of right back wall of thorax, initial encounter (principal)
CPT/HCPCS: 86618

== ENCOUNTER 2023-08-03 15:47 | Outpatient (CLI) | payer MEDICARE, SELFPAY ==
--- OUTSIDE RECORDS SUMMARY | 2023-08-03 15:50 | XMS_ITS | Clinical Summary ---
Author Organization [facility] Address [place], [place] [address] Care Team Providers Care Audit Specialist Name Role Phone GregoryYamile MD Unavailable [phone] Mauricio Smith MD Unavailable [phone] Melvin Hurt MD Primary Care Provider Allergies [...] for DOT compliance 1 unit. 10/14/2020 Active cephalexin (KEFLEX) 500 mg capsule Take 1 Capsule (500 mg) by mouth four times daily. 06/07/2023 Active Active Problems Problem Noted Date Diagnosed [...] Overview: Right - thought due to Osteoarthritis Encounters Date Type Department Care Team Description 06/07/2023 11:40 AM CDT Office Visit [facility] [address] [place] [address] Lucille Aldridge [facility] F/U (Cellulitis on rt ankle and rt leg back of knee was seen at [place] [facility] 06/04/23 ) 06/07/2023 Travel from Last 3 Months Immunizations Name Administration Dates Next Due Influenza, [...] Yes Alcohol Use Standard Drinks/Week Comments Yes 4 (1 standard drink = 0.6 oz pur e alcohol) occ. PHQ-2 Answer Date Recorded PHQ-2 TOTAL SCORE 0 06/08/2023 Social Connections Answer Date Recorded Frequency of Communication with Friends and Fami ly 0 06/07/2023 Financial Resource Strain Answer Date R ecorded Difficulty of Paying Living Expenses 3 06/07/2023 Difficulty of Paying Living Expenses Not on file 06/07/2023 Food Insecurity Answer Date Recorded Worried About Running Out of Food in the Last Ye ar 1 06/07/2023 Transportation Needs Answer Date Record ed Lack of Transportation (Medical) 1 06/07/2023 Housing Stability Answer Date Recorded Unable to Pay for Housing in the Last Year 1 06/07/2023 Sex and Gender Information Value Date Recorded Sex Assigned at Not on file Gender Identity Not on file Sexual Orientation Not on file Obstetrics History Last Filed Vital Signs Vital Sign Reading Time Taken Comments Blood Pressure 136/84 06/07/2023 11:56 AM CDT Pulse 82 06/07/2023 11:56 AM CDT Temperature 36.8 ??C (98.3 ??F) 06/07/2023 1 1:51 AM CDT Respiratory Rate 18 10/29/2014 2:34 PM CDT Oxygen Saturation 95% 08/21/2021 9:47 AM CDT Inhaled Oxygen Concentration - - Weight 99.2 kg (218 lb 12.8 oz) 024 11:51 AM CDT Height 175.3 cm (5' 9) 06/07/2023 11:5 1 AM CDT Body Mass Index 32.31 06/07/2023 11:51 AM CDT Plan of Treatment Health Maintenance Due Date Last Done Comments Zoster (shingles) series for age 50+ (2 of 3) 02/05/2009 12/11/2008 Medicare Wellness for age 65+ 04/06/2012 04/06/2011 Tetanus booster 04/06/2021 04/06/2011, 03/01, 04/06/2003 COVID-19 vaccine series ( season) 2022 Influenza for age 65+ 10/31/2023 11/28/2009 BMI (ht and wt on same day) for age 18+ 06/06/2024 06/07/2023, 10/14/2020, 03/25/2020, Additional history exists Depression screening for age 12+ 06/07/2024 06/08/2023, 06/07/2023, 08/20/2020, Additional history exists Tdap Completed 04/06/2011 Pneumococcal series for age 65+ Completed 5, 07/16/2009 Advance Directives Documents on File Type Date Recorded Patient Slasher Sawyer Expl anation Healthcare Directive 07/24/2009 * Full Code (Latest Code Status on File) Date Activated Date Inactivated Comments 09/29/2010 9:22 AM 09/29/2010 2:21 PM * Full Code Date Activated Date Inactivated Comments 07/05/2010 11:44 PM 07/09/2010 5:45 PM * Full Code Date Activated Date Inactivated Comments 07/21/2009 9:20 AM 07/26/2009 12:14 PM Care Teams Audit Specialist Relationship Specialty Start Date End Date Melvin Hurt MD [address] [place] [address] PCP - General Family Practice 03/25/20 Yamile Jenkins MD Surgery - Orthopedics 04/06/11 Mauricio Smith MD [facility] [address] [address] Ophthalmology Surgery 04/06/11
--- OUTSIDE RECORDS SUMMARY | 2023-08-03 15:50 | XMS_ITS | Continuity of Care Document ---
Author Organization [facility] Address [address] [place] [address] Phone Care Team Providers Care Sole Stainer Name Role Phone Kali PAC, Yoanna Unavailable [...] ient Visit,Est, Mod [facility], [address], [place], [place], [id number], [place] tel:[phone] [facility] Other spondylosis, cervical region Apr-3 0-202 1 Kali Lenz. [facility], [address], [place], [address], [place]. tel: [phone] Referring Provider: Yoanna Kali Watts, [facility] [address], [place], [address]. tel:[phone] Office/Outpat ient Visit,Est, Mod [facility], [address], [place], [place], [id number], [place] tel:[phone] [facility] Other displaced dens fracture, sequela 0 Kali Yoanna. [facility], [address], [place], [address], [place]. tel: [phone] Referring Provider: Yoanna Watts, [facility] [address], [place], [address]. tel:[phone] Office/Outpat ient Visit,Est, Mod [facility], [address], [place], [place], [id number], [place] tel:[phone] [facility] Other displaced dens fracture, sequela Nov- 0 Kali Yoanna. [facility], [address], [place], [address], [place]. tel: [phone] Referring Provider: Yoanna Watts, [facility] [address], [place], [address]. tel:[phone] Office/Outpat ient Visit,Est, Mod [facility], [address], [place], [place], [id number], [place] tel:[phone] [facility] Other displaced dens fracture, sequela 0 Kali Yoanna. [facility], [address], [place], [address], [place]. tel: [phone] Referring Provider: Yoanna Watts, [facility] [address], [place], [address]. tel:[phone] Office/Outpat ient Visit,Est, Mod [facility], [address], [place], [place], [id number], [place] tel:[phone] [facility] Other displaced dens fracture, sequela 0 0 Lauren Kevin. [facility], [address], [place], [place], [id number] , [place]. tel: [phone] Referring Provider: Yoanna Watts, [facility] [address], [place], [address]. tel:[phone] Office/Outpat ient Visit,New, Mod [facility], [address], [place], [place], [id number], [place] tel:[phone] [facility] Oth displaced dens fracture, init encntr for closed fracture 0 Kali Yoanna. [facility], [address], [place], [address], [place]. tel:[phone] Referring Provider: Yoanna Watts, [facility] [address], [place], [address]. tel:[phone] Z [facility], [address], [place], [address], [place] tel:[phone] [facility] [place] No Information 3201 0 Mehbod Amir. [facility], [address], [place], [place], [id number] , [place]. tel:[phone] Referring Provider: Shahzad Watts, [address], [place], [address]. tel:[phone] Z [facility], [address] [place], [place] [address] [address], [place], [address], [place] tel:[phone] [facility] No Information Aug-0 8-201 0 Mehbod Amir. [facility], [address], [place], [place], [id number] , [place]. tel:[phone] Referring Provider: [facility]zad [facility], [facility] [address], [place], [address]. tel:[phone] Z [facility], [address] [place] [address] [address], [place], [address], [place] tel:[phone] [facility] No Information June-2 5-201 0 Mehbod Amir. [facility], [address], [place], [place], [id number] , [place]. tel:[phone] Referring Provider: Shahzad Watts, [facility] [address], [place], [address]. tel:[phone] Office/outpat ient visit,new, mod Z [facility], [address] [place], [place] [address] [address], [place], [address], [place] tel:[phone] [facility] No Information June-0 3-201 0 Mehbod Amir. [facility], [address], [place], [place], [id number] , [place]. tel:[phone] Referring Provider: Shahzad Watts [facility] [address], [place], [address]. tel:[phone] Family History Family Member Type Diagnosis Age At Onset No Information Payers Payer name Insurance type Covered libertarian ID Reid velazquez(s) [employer] 2021 CI [id number] Social History Type Description Quantity Date Captured [...] Order Ce rvical 3 Views Or Less ([id number]), Ordered on: Ordered Future Order: Radiology Order Ce rvical 3 Views Or Less ([id number]), Ordered on: Ordered Future Order: Radiology Order Ce rvical 3 Views Or Less ([id number]), Ordered on: Ordered History Of Present Illness Encounter Date Complaint History Of Prese nt Illness No Information Functional Status Date Functional Assessmen t No Information Instructions Date Instruction Additional Infor mation No Information Assessments Type Assessment Date assessment Other spondylosis, cervical ryland on Patient Care Teams Name Effective Dates (start - stop) Status Members No Information
== END 2023-08-03 15:48 | disposition home or self-care (01) ==
LOC: LKVREF 15:48
PROVIDERS: Visit Provider Physician Assistant
DX: R21 Rash and other nonspecific skin eruption (principal)
CPT/HCPCS: 86618